=== PATIENT | female | born 1945 | race Caucasian/White ===

== ENCOUNTER 2016-05-15 15:35 | Emergency (ER) | payer OTHER ==
--- NOTE | 2016-05-15 15:53 | PROVIDER DOCUMENTATION ---
HPI-General Adult - General Chief Complaint: Chest Pain Stated Complaint: chest pain Time Seen by Provider: 05/15/16 15:43 Source: patient Allergies/Adverse Reactions: Patient Allergies Allergy/AdvReac Type Severity Reaction Status Date / Time acetaminophen [From Lortab] Allergy Intermediate NAUSEA/VOMI Verified 02/21/12 14:48 TING hydrocodone bitartrate * Allergy Intermediate NAUSEA/VOMI Verified 02/21/12 14: 48 [From Lortab] TING meperidine [Meperidine] Allergy Intermediate NAUSEA/VOMI Verified 02/21/12 14:51 TING Home Medications: Albuterol Sulfate Inhaler [Ventolin Hfa] 2 puff INH Q6H PRN PRN 02/21/12 Aspirin [Aspir 81] 1 PO DAILY 02/21/12 Clonazepam PRN PRN 02/21/12 Clopidogrel [Plavix] 75 mg PO DAILY 02/21/12 Diltiazem C.d. [Cardizem C.d] 120 mg PO BID 02/21/12 LISINOpril [Prinivil] 40 mg PO DAILY 02/21/12 Nitroglycerin Sl [Nitrostat] 0.4 mg SL DIRECTED PRN PRN 02/21/12 Cardinal-3/Dha/Epa/Fish Oil [Fish Oil 1,000 mg Softgel] 1 each PO TID 02/21/12 Omeprazole [Prilosec] 40 mg PO DAILY 02/21/12 Phenazopyridine HCl [Pyridium] 200 mg PO TID 02/21/12 Tiotropium [place] Inhaler [Spiriva] 1 puff INH RTDAILY 02/21/12 Lisinopril 40 mg PO DAILY 02/24/12 - History of Present Illness -Gen Adult Nature of Presenting Problems: hx of spells of passing out or collapsing numerous w/u neg now with vague pain in the chest and poor recollection of event. Location of Pain/Injury: reports: head, chest Pain Radiation: reports: no radiation Quality of Pain: reports: aching Severity: reports: mild Onset/Duration: reports: other (years of passing out) Timing: reports: still present Context/Activities at Onset: reports: light activity Modifying Factors: improves with: movement Associated Symptoms: reports: chest pain, syncope Similar Symptoms Previously?: Yes Recently seen or treated by another doctor?: Yes Review of Systems - Adult - REVIEW OF SYSTEMS - ADULT Constitutional: denies: chills, fever Eyes: denies: discharge, dry eyes, blurred vision, double vision, eye pain, redness Ears, Nose, Mouth & Throat: denies: ear discharge, ear pain, hearing loss, epistaxis, throat pain Cardiovascular: reports: chest pain, syncope. denies: heart murmur, irregular heart rate, palpitations, PND Respiratory: reports: shortness of breath Genitourinary: reports: no symptoms reported Musculoskeletal: reports: no symptoms reported Integumentary: reports: no symptoms reported Neurological: reports: headache/migraines Psychiatric: reports: no symptoms reported Endocrine: reports: no symptoms reported Hematologic/Lymphatic: reports: no symptoms reported Allergic/Immunologic: reports: no symptoms reported Past History - Adult - PAST MEDICAL HISTORY-ADULT Review of Records: reports: Nursing Assessment Review, Medications Reviewed, Social history reviewed & non-contributory. Cardiovascular: reports: denies history Respiratory: reports: denies history, other (smoker) Gastrointestinal: reports: other (dysphagia) Genitourinary: reports: denies history Musculoskeletal: reports: denies history Neurological: reports: denies history Endocrine/Immune: reports: denies history - PRIOR SURGERIES/PROCEDURES Surgical/Procedure History: reports: none - SOCIAL HISTORY Smoking: cigarettes Substance Use: none/never Alcohol Use Frequency: never Physical Exam-General - PHYSICAL EXAM-ADULT Exam Limited by: Initial Vital Signs Reviewed: Yes - CONSTITUTIONAL General Appearance: no apparent distress - HEAD, EARS, NOSE, MOUTH & THROAT HENMT: normocephalic/atraumatic, moist mucous membranes - NECK Neck: non-tender, full range of motion, supple - RESPIRATORY Respiratory: rhonchi - CARDIOVASCULAR Cardiovascular: regular rate, rhythm - CHEST (BREASTS) Chest/Breast: tenderness - GASTROINTESTINAL (ABDOMEN) Abdominal Exam: soft, no organomegaly, distended. negative: abdominal bruit, abnormal bowel sounds, guarding, tenderness - LYMPHATIC Lymphatic: no adenopathy - MUSCULOSKELETAL Back Exam: normal inspection, no CVA tenderness Extremity: non-tender Peripheral Pulses: dorsalis-pedis (R): 2+, dorsalis-pedis (L): 2+ - SKIN Integumentary: normal color, normal turgor - NEUROLOGIC Neurologic: grossly normal - PSYCHIATRIC Psych/Mental Status: oriented x 3 Progress - PLAN OF CARE/RESULTS Progress/Plan/Lab Results: Laboratory Tests 05/15/16 05/15/16 05/15/16 15:48 15:48 15:48 WBC RBC Hgb Hct MCV MCH MCHC RDW Std Deviation Plt Count MPV Immature Gran % (Auto) Neut % (Auto) Lymph % (Auto) [place] % (Auto) Eos % (Auto) Baso % (Auto) Immature Gran # (Auto) Neut # (Auto) Lymph # (Auto) [place] # (Auto) Eos # (Auto) Baso # (Auto) PT INR APTT (Factor Assay) Sodium 138 Potassium 3.1 L Chloride 103 Carbon Dioxide 22 L Anion Gap 14 BUN 15 Creatinine 0.9 Estimated GFR/1.73 m2 > 60 BUN/Creatinine Ratio 17 Glucose 156 H Calculated Osmolality 280 Calcium 9.1 Magnesium 1.9 Total Bilirubin 0.30 AST 24 ALT 17 Alkaline Phosphatase 125 H Creatine Kinase 47 Troponin T < 0.010 Yqj-[id number]-Vvkvczzysme Pept 78 Total Protein 7.6 Albumin 3.8 Globulin 4.0 Albumin/Globulin Ratio 1.0 05/15/16 05/15/16 05/15/16 15:48 15:48 17:17 WBC 13.86 H RBC 4.84 Hgb 14.8 Hct 42.4 MCV 87.6 MCH 30.6 MCHC 34.9 RDW Std Deviation 12.6 Plt Count 314 MPV 9.8 Immature Gran % (Auto) 0.3 Neut % (Auto) 57.2 Lymph % (Auto) 33.5 [place] % (Auto) 6.7 Eos % (Auto) 1.7 Baso % (Auto) 0.6 Immature Gran # (Auto) 0.04 Neut # (Auto) 7.93 H Lymph # (Auto) 4.64 H [place] # (Auto) 0.93 H Eos # (Auto) 0.23 Baso # (Auto) 0.09 PT 13.8 INR 1.03 APTT (Factor Assay) 26.4 Sodium Potassium Chloride Carbon Dioxide Anion Gap BUN Creatinine Estimated GFR/1.73 m2 BUN/Creatinine Ratio Glucose Calculated Osmolality Calcium Magnesium Total Bilirubin AST ALT Alkaline Phosphatase Creatine Kinase 46 Troponin T Nub-V-Rihqzqzljkc Pept Total Protein Albumin Globulin Albumin/Globulin Ratio - EKG 1 Time of EKG reading by physician:: 17:20 EKG Read and Signed by:: Wiliam Lomas Rate: 81 Rhythm: sinus pvc [place]: normal [place] Interval: normal ST Wave: normal - XRAY 1 XRAY Study: Chest Impression: Normal Departure - Departure Time of Disposition Order: 18:24 DIAGNOSIS: Atypical chest pain, GERD with stricture Disposition: HOME 01 Certified Medical Emergency: Emergent Condition: Good Additional Instructions: ED Follow Up Instructions: You have been treated by a care provider in the Emergency Department. These instructions are being provided to you so you can have an understanding of how to care for yourself upon discharge. Upon discharge from the Emergency Department, you are responsible for making arrangements for follow-up care by a physician of your choice. Take all prescribed medications as directed. Return to the Emergency Department immediately for any new or worsening symptoms. You may call the Physician Referral phone number at [phone] to obtain a list of Physicians who are taking new patients. CALL DR HOPPER OR DR CORONADO TO EVALUATE RECURENT FOOD ERUCTATION AND DYSPHAGIA Referrals: Ivana Elkins [Primary Care Provider] -
[2016-05-15 15:57] LABS: MANUAL DIFF NEEDED? NO
[2016-05-15 16:03] LABS: BASO% 0.6 % (0.0-0.8); EOS# 0.23 X1000 (0.0-0.7); EOS% 1.7 % (0.0-10.0); HEMATOCRIT 42.4 % (37.0-47.0); HEMOGLOBIN 14.8 g/dL (12.0-16.0); IMM GRAN# 0.04 X1000 (0.0-0.04); IMM GRAN% 0.3 % (0.0-0.5); LYMPH# 4.64 X1000 (1.2-3.4); LYMPH% 33.5 % (20.5-51.1); MCH 30.6 PG (27-31); MCHC 34.9 g/dL (33-37); MCV 87.6 FL (81-99); MONO# 0.93 X1000 (0.11-0.59); MONO% 6.7 % (1.7-9.3); MPV 9.8 FL (7.4-10.4); NEUT% 57.2 % (42.2-75.2); PLT 314 X1000 (130-400); RBC 4.84 XMIL (4.2-5.4)
[2016-05-15 16:17] LABS: INR 1.03 (0.86-1.15); PROTIME 13.8 Seconds (12.1-15.5); PTT PL 26.4 Seconds (22.6-43.9)
[2016-05-15 16:43] LABS: AGAP 14; ALBUMIN 3.8 g/dL (3.5-5.0); ALKALINE PHOSPHATASE 125 U/L (32-104); BUN 15 mg/dL (8-22); CALCIUM 9.1 mg/dL (8.8-10.2); CHLORIDE 103 mmol/L (98-107); CK PROFILE 47 U/L (24-173); COSMO 280; GOT 24 U/L (10-30); GPT 17 U/L (10-36); MAGNESIUM 1.9 mg/dL (1.5-2.7); POTASSIUM 3.1 mmol/L (3.5-5.1); SODIUM 138 mmol/L (136-145); TCO2 22 mmol/L (25-35); TOTAL PROTEIN 7.6 g/dL (6.3-8.3)
[2016-05-15] MEDS ORDERED: KLOR-CON PO ONE ×2 (16:59→17:44)
--- NOTE | 2016-05-15 17:23 | EKG Report ---
Test Performed on : 05/15/2016 5:09:42 PM Test Reason : CHEST PAIN Blood Pressure : / mmHG Vent. Rate : 081 BPM Atrial Rate : 081 BPM P-R Int : 178 ms QRS Dur : 094 ms QT Int : 438 ms P-R-T Axes : 064 028 067 degrees QTc Int : 508 ms Sinus rhythm. with occasional premature ventricular complexes. Prolonged QT Abnormal ECG When compared with ECG of 12-AUG-2011 08:19, premature ventricular complexes. are now present Unconfirmed Result
--- NOTE | 2016-05-15 18:10 | ED EKG INTERP ---
EKG Interpretation - EKG Time of EKG reading by physician:: 17:09 EKG Read and Signed by:: Wiliam Lomas EKG Interpretation (*Must complete 3 of following elements*): Abnormal Rate: 81 Rhythm: sinus rhythm with occasional premature ventricular complexes [place]: normal [place] Interval: normal ST Wave: normal Comments: prolonged QT; abnormal EKG - EKG # 2 Time of EKG reading by physician:: 18:28 EKG Read and Signed by:: Wiliam Lomas EKG Interpretation (*Must complete 3 of following elements*): Abnormal Rate: 76 Rhythm: NSR [place]: normal QRS: other (prolonged QT) [place] Interval: normal ST Wave: normal Comments: prolonged QT, abnormal EKG Attestation - Scribe Verification/Attestation Scribe:: Elias Talavera Acting as Scribe for:: Wiliam Lomas Scribsam documention review:: This chart was documented by a scribe and accurately reflects the service the provider performed and the decisions made by the provider.
--- NOTE | 2016-05-15 18:37 | EKG Report ---
Test Performed on : 05/15/2016 6:28:42 PM Test Reason : syncope Blood Pressure : / mmHG Vent. Rate : 076 BPM Atrial Rate : 076 BPM P-R Int : 182 ms QRS Dur : 092 ms QT Int : 446 ms P-R-T Axes : 053 036 076 degrees QTc Int : 501 ms Normal sinus rhythm. Prolonged QT Abnormal ECG When compared with ECG of 15-MAY-2016 17:09, (Unconfirmed) premature ventricular complexes. are no longer present Unconfirmed Result
[2016-05-15 18:55] VITALS: BP 144/78
--- NOTE | 2016-05-15 19:53 | Diag Imaging Result Document ---
PROCEDURE NAME: CHEST-2 VIEWS - 05/15/2016 STUDY: AP and lateral radiograph of the chest. COMPARISON: 02/11/2012. FINDINGS: The lungs are grossly clear. There is no discrete pleural fluid collection or pneumothorax. The cardiomediastinal silhouette and upper airway are grossly unremarkable. IMPRESSION: No evidence of acute chest pathology.
== END 2016-05-15 18:56 | disposition home or self-care (01) ==
LOC: P.ED 15:35
DX: K21.9 Gastro-esophageal reflux disease without esophagitis (principal); R07.89 Other chest pain; R55 Syncope and collapse; R06.02 Shortness of breath; R14.0 Abdominal distension (gaseous); Z79.02 Long term (current) use of antithrombotics/antiplatelets; Z79.82 Long term (current) use of aspirin; Z79.899 Other long term (current) drug therapy
CPT/HCPCS: 71020; 80053; 82550; 83735; 83880; 84484; 85025; 85610; 85730; 93005; 99284